=== PATIENT | female | born 1990 | race Caucasian/White ===

== ENCOUNTER 2016-11-21 19:16 | Emergency (ER) | payer MEDICAID ==
[2016-11-21 21:30] VITALS: BP 114/69
== END 2016-11-21 21:30 | disposition home or self-care (01) ==
LOC: ED 19:16
DX: R40.4 Transient alteration of awareness (principal); J45.909 Unspecified asthma, uncomplicated
CPT/HCPCS: 36600; 83880; G0480; J2930; J7613; Q0092